=== PATIENT | male | born 1995 | race Caucasian/White ===

== ENCOUNTER 2017-03-06 17:49 | Emergency (ER) | payer BC, MEDICAID ==
[~2017-03-06] VITALS: Ht 180.3 cm; Wt 157.3 kg
[2017-03-06 17:54] VITALS: Ht 180.3 cm; Wt 157.3 kg
[2017-03-06] MEDS ORDERED: ONDANSETRON (ODT) 4 MG TAB ODT STA (19:01)
[2017-03-06] MEDS ORDERED: HYDROCODONE/APAP (5/325) TAB PO ONE (19:30)
--- NOTE | 2017-03-06 20:14 | RADRPT ---
PROCEDURE: XR Left Ankle. CLINICAL INDICATION: Injury. Pain. TECHNIQUE: Three views of the left ankle were performed. COMPARISON: None. FINDINGS: There is lateral malleolar subcutaneous soft tissue swelling. There is no underlying fracture. [place] nt relationships are maintained. Ankle mortise is intact. Bone mineralization is within normal cardoza its. IMPRESSION: Lateral malleolar subcutaneous soft tissue swelling without underlying fracture. RPTAT: [facility] .Anthony Manriquez MD, MD Date Time Electronically viewed and signed by .Anthony Manriquez MD, on 03/06/2017 20:14 .K/
[2017-03-06] MEDS ORDERED: HYDR-906 PO (20:26)
[2017-03-06] MEDS ORDERED: IBUP-1542 PO (20:26)
--- NOTE | 2017-03-06 20:40 | ERD ---
ER Documentation Chief Complaint Chief Complaint Complains of left ankle pain after a slip and fall HPI Patient is a 21-year-old male presenting to the emergency department with complaints of left ankle pain after inverting his ankle just prior to arrival. The patient was helping his brother move a bed when he stepped off the curb twisting his ankle. Pain is constant, worse with ambulation, no medication taken. He reports pain to the lateral malleolus. No head injury, loss of consciousness, or other injuries or symptoms reported at this time. ROS All systems reviewed and are negative except as per history of present illness. Medications Home Meds Active Scripts Hydrocodone/Acetaminophen ([place] 5-325 Tablet) 1 Each Tablet, 1 TAB PO Q6H Y for PAIN, #7 TAB Prov:JUAN DAVID CALLE PA-C 03/06/17 Ibuprofen* (Motrin*) 600 Mg Tab, 600 MG PO Q6, #30 TAB Prov:JUAN DAVID CALLE PA-C 03/06/17 Allergies Allergies: Coded Allergies: No Known Allergies (Verified Allergy, Unknown, 04/29/12) PMhx/Soc Medical and Surgical Hx: pt denies Medical Hx, pt denies Surgical Hx History of Surgery: No Anesthesia Reaction: No Hx Neurological Disorder: No Hx Respiratory Disorders: No Hx Cardiac Disorders: No Hx Psychiatric Problems: No Hx Miscellaneous Medical Probl: No Hx Alcohol Use: No Hx Substance Use: No Hx Tobacco Use: No Physical Exam Vitals Vital Signs Date Time Temp Pulse Resp B/P Pulse Ox O2 Delivery O2 Flow Rate FiO2 03/06/17 17:54 98.3 141 20 130/62 100 Physical Exam Const: Nontoxic, well-appearing male in no acute distress. Head: Atraumatic Eyes: Normal Conjunctiva ENT: Normal External Ears, Nose and Mouth. Skin: No petechiae or rashes Back: No midline or flank tenderness Ext: There is significant soft tissue swelling, ecchymosis, and tenderness to palpation noted over the lateral malleolus of the left lower extremity. Patient has limited range of motion secondary to pain. There is no tenderness to palpation of the fifth metatarsal. Neur: Awake and alert Psych: Normal Mood and Affect Results 24 hrs Current Medications Medications (Trade) Dose Ordered Sig/Fito Route PRN Reason Start Time Stop Time Status Last Admin Dose Admin Acetaminophen/ Hydrocodone Bitart ([place] (5/325)) 1 tab ONCE ONCE PO 03/06/17 19:30 03/06/17 19:31 DC 03/06/17 19:08 Ondansetron HCl (Zofran Odt) 4 mg ONCE STAT ODT 03/06/17 19:01 03/06/17 19:03 DC 03/06/17 19:08 Procedures/MDM 21-year-old male presented for left ankle pain after injury earlier today. Physical examination is consistent with ankle sprain, x-ray showed no evidence of fracture. The patient was placed in an Dany wrap and was neurovascularly intact post application. He had crutches with him that he will be using. He is to follow-up with his primary care physician within the next 1-2 days. Copies of the x-ray results were given. He may return immediately for new or worsening symptoms. Departure Diagnosis: Primary Impression: Left ankle sprain Encounter type: initial encounter Involved ligament of ankle: unspecified ligament Qualified Code: S93.402A - Sprain of left ankle, unspecified ligament , initial encounter Condition: Fair Patient Instructions: Treating Ankle Sprains Additional Instructions: FOLLOW UP WITH YOUR PRIMARY CARE PHYSICIAN TOMORROW.Return to this facility if you are not improving as expected. JUAN DAVID CALLE PA-C Mar 06, 2017 20:39
== END 2017-03-06 20:36 | disposition home or self-care (01) ==
LOC: FTE 17:49
DX: S93.402A Sprain of unspecified ligament of left ankle, initial encounter (principal); X50.9XXA Other and unspecified overexertion or strenuous movements or postures, initial encounter; Y92.9 Unspecified place or not applicable
CPT/HCPCS: 73610; Z7502; Z7610